=== PATIENT | female | born 1940 | race Caucasian/White ===

== ENCOUNTER → 2016-09-13 | Outpatient (CLI) | payer MEDICARE | END | disposition home or self-care (01) | LOC: RAD 08:39 | DX: J42 Unspecified chronic bronchitis (principal); R06.02 Shortness of breath; R05 Cough; R63.4 Abnormal weight loss ==

== ENCOUNTER 2016-10-19 18:15 | Emergency (ER) | payer MEDICARE ==
[~2016-10-19] VITALS: Wt 59.0 kg
[2016-10-19] MEDS ORDERED: LEVOTHYROXIN0.025 MG PO (18:22)
[2016-10-19] MEDS ORDERED: VITAMIN D400 UNI1 PO (18:22)
[2016-10-19] MEDS ORDERED: ASPIRIN81 M1 PO (18:22)
[2016-10-19] MEDS ORDERED: COZAAR25 M1 PO (18:23)
[2016-10-19 19:03] LABS: BASO # 0.1 10*3/uL (0.0-0.1); BASO % 0.8 % (0.0-1.0); EOS # 0.1 10*3/uL (0.0-0.4); HEMATOCRIT 37.1 % (37.0-47.0); HEMOGLOBIN 12.4 g/dl (12.0-16.0); LYMPH # 2.5 10*3/uL (1.3-4.4); LYMPH % 32.5 % (27.0-41.0); MEAN CELL VOLUME 84.5 fl (81.0-99.0); MEAN CORPUSCULAR HGB 28.2 pg (27.0-31.0); MEAN CORPUSCULAR HGB CONC 33.4 g/dl (33.0-37.0); MEAN PLATELET VOLUME 8.9 fl (9.6-12.3); MONO # 0.6 10*3/uL (0.1-1.0); MONO % 7.3 % (3.0-9.0); NEUT # 4.6 10*3/uL (2.3-7.9); NEUT % 58.1 % (47.0-73.0); PLATELET COUNT AUTOMATED 335 10*3/uL (130-400); RED BLOOD COUNT 4.39 10*6/uL (4.10-5.10); WHITE BLOOD COUNT 7.8 10*3/uL (4.8-10.8)
[2016-10-19 19:13] LABS: INTERNATIONAL NORM RATIO 1.1 (2.0-3.5); PROTHROMBIN TIME 11.3 SECONDS (9.0-12.4)
[2016-10-19 19:24] LABS: ALBUMIN 3.9 gm/dl (3.1-4.5); ALKALINE PHOSPHATASE 81 U/L (45-117); BILIRUBIN, TOTAL 0.4 mg/dl (0.2-1.0); BUN 10 mg/dl (7-24); C-REACTIVE PROTEIN 0.71 MG/DL (0-0.3); CARBON DIOXIDE 26 mmol/L (21-32); CHLORIDE 104 mmol/L (98-107); EST GLOM FILT AFRICAN AMERICAN > 60 ml/min; GLUCOSE 100 mg/dL (65-99); POTASSIUM 3.5 mmol/L (3.5-5.1); SGOT/AST 18 IU/L (3-35); SGPT/ALT 31 U/L (12-78); SODIUM 139 mmol/L (136-145); TOTAL PROTEIN 7.7 gm/dL (6.4-8.2); TROPONIN I < 0.015 ng/ml (<0.045)
[2016-10-19 22:20] LABS: MAGNESIUM 2.3 mg/dL (1.5-2.1)
== END 2016-10-19 20:05 | disposition home or self-care (01) ==
LOC: ED 18:15
PROVIDERS: Registered Nurse
DX: I10 Essential (primary) hypertension (principal); Z88.6 Allergy status to analgesic agent; Z79.899 Other long term (current) drug therapy